=== PATIENT | female | born 1985 | race Caucasian/White ===

== ENCOUNTER 2016-10-28 13:19 | Observation (INO) ==
--- NOTE | 2016-10-28 14:44 | OB/GYN Progress Note ---
Date of Encounter: 10/28/16 Time of Encounter: 14:42 - Assessment and Plan (1) Fall Current Visit: Yes Status: Acute Pt denies complaints since fall. NST Reactive. Blood type O positive. Discharge home with precautions. Qualifiers: Encounter type: initial encounter Qualified Code(s): W19.XXXA - Unspecified fall, initial encounter (2) 33 weeks gestation of Current Visit: Yes Status: Acute (3) NST (non-stress test) reactive Current Visit: Yes Status: Acute Subjective - Subjective Interval history: Pt reports she fell on ice at 0730 this am. She hit her right hip and back but not her abdomen. She denies cramping, bleeding, pain or other complaints. Good FM. Blood type O positive. Antepartum ROS: movement normal, no loss of fluid, no vaginal bleeding, no contractions Objective - Exam FHR: category 1 FHR comments: NST reactive Auscultation: bilateral: normal Abdomen: Present: soft, gravid. Absent: tenderness Uterus: Absent: tenderness
== END 2016-10-28 14:54 | disposition home or self-care (01) ==
LOC: 1NENULAB
PROVIDERS: ADMIT Obstetrics & Gynecology; ATTEND Obstetrics & Gynecology

== ENCOUNTER 2016-12-10 08:00 | Inpatient (IN) ==
[2016-12-10] MEDS ORDERED: Metoclopramide 10 MG/2 ML VIAL IVP PRN (08:43)
[2016-12-10] MEDS ORDERED: Ondansetron 4 MG/2 ML VIAL IVP PRN (08:43)
[2016-12-10] MEDS ORDERED: Famotidine 20 MG/2 ML VIAL IVP PRN (08:43)
[2016-12-10] MEDS ORDERED: Ringers Solution, Lactated 1,000 ML IVC SCH (08:45)
--- NOTE | 2016-12-10 09:03 | OB/GYN History & Physical ---
Date of Encounter: 12/10/16 Time of Encounter: 09:02 Assessment and Plan (1) 39 weeks gestation of Current visit: Yes Status: Acute 39 weeks 3 days admit to labor and delivery for induction of labor no complaints at this time category 1, baseline 130s with accels [id number] continue FHM and external toco pain medication and epidural anesthesia upon request IV fluids and admission orders initiated 50 mcg Cytotec anticipate History of Present Illness Chief complaint: IOL HPI: Ms. Pradhan is a 31 year old female 39 weeks 3 days presents for induction of labor. Estimated due date 12/14/2016. She is a patient of OB Dr. Rebolledo. No complaints at this time such as fever, recent illness, headache, changes in vision, RUQ/epigastric pain. Denies any vaginal bleeding or leakage of fluid. Endorses good movement. No complications today with . 1st delivered normal spontaneous vaginal delivery. GBS negative, HBV nonreactive, Rubella immune. Other serologies reviewed and are negative. She is blood type O positive. Cervix last check /- on 12/02/2016. Past Med Surg Social Fam HX - Past Medical History Attestation: Yes The following information was validated with the patient. Source: patient Medical history: no medical history - Social History Smoking Status: Never smoker Smokeless Tobacco Status: No - Family History Mother Living Status: Still Living Hx Family Cardiac Disorders: Yes (HYPERTENSION) Obstetrical History - Pregnancies : 2 Para: 1 Term: 1 : 0 Ab's: 0 Livin Medications and Allergies Vit Calc,Iron,Folic [ Vitamins] 1 tab PO DAILY 12/10/16 [ History] Allergies Sulfa (Sulfonamide Antibiotics) Allergy (Verified 12/10/16 09:12) Rash Review of System OB All systems PM: reviewed and no additional remarkable complaints except as stated Exam - Constitutional Constitutional: well developed, well nourished, no acute distress, average body habitus - HEENT HEENT: EOMI, Normocephaly, Mucus Membranes Moist - Neck Neck exam: full ROM, normal inspection, supple - Lungs Respiratory exam: CTAB - Cardiovascular Cardiovascular exam: RRR, +S1, +S2 - Abdomen Abdomen: Present: bowel sounds normal, gravid, non tender - Extremities Extremities exam: full ROM, normal capillary refill, normal inspection, warm Deep Tendon Reflex Grade: 2+ Normal - Uterus Uterus exam: Present: normal size Results Result Diagrams: 12/10/16 09:20 All other labs normal. - VTE Reasons for not Prescribing Prophylaxis: Treatment not Indicated - Low risk for VTE
[2016-12-10 09:26] LABS: Basophils % 0.4 %; Eosinophils # 0.1 K/mcL (0.0-0.6); Eosinophils % 0.7 %; Hematocrit 36.5 % (35.3-44.9); Hemoglobin 12.3 g/dL (11.5-15.4); Immature Granulocytes % 0.4 % (0-4); Immature Platelets 7.9 % (1.1-6.1); Lymphocytes # 2.4 K/mcL (0.6-4.6); Lymphocytes % 29.2 %; Mean Corpuscular HGB Conc 33.7 g/dL (31.6-35.5); Mean Corpuscular Hemoglobin 29.6 pg (28.0-33.3); Mean Platelet Volume 10.9 fL (9.4-12.4); Monocytes # 0.6 K/mcL (0.0-1.3); Monocytes % 7.7 %; Platelet Count 193 K/mcL (140-400); Red Blood Count 4.15 M/mcL (3.82-4.97); Red Cell Distribution Width 12.6 % (11.5-14.5); Segmented Neutrophils % 61.6 %
[2016-12-10] MEDS ORDERED: miSOPROStol 25 MCG TABLET PO PRN (09:33)
--- NOTE | 2016-12-10 14:31 | OB Labor Progress Note ---
Date of Encounter: 12/10/16 Time of Encounter: 14:30 Labor Progress Note - Subjective Subjective: Pt reports mild discomfort with contractions. - Cervix Cervix: 3-4/70/-1 - Heart Tones Heart Tones: category I - [place]: irregular - Interventions Interventions: AROM for moderate amount clear fluid. IUPC placed. - Plan Plan: Continue to monitor. Epidural when requested. Anticipate .
[2016-12-10] MEDS ORDERED: Oxytocin 20 units/ LR 1000 mL 20 UNIT/1,000 ML BAG IVC SCH ×2 (14:45→22:54)
[2016-12-10] MEDS ORDERED: *HR* FentaNYL (PF) 100 MCG/2 ML VIAL EP ONE (15:33)
[2016-12-10] MEDS ORDERED: *HR* Ropivacaine/PF 0.2% 10 ML AMPUL EP ONE (15:33)
[2016-12-10] MEDS ORDERED: EPHEDrine 50 MG/ML VIAL IVP PRN (15:33)
[2016-12-10] MEDS ORDERED: *HR* Ropivacaine/PF 0.2% 10 ML AMPUL ONE (15:36)
[2016-12-10] MEDS ORDERED: *HR* FentaNYL (PF) 100 MCG/2 ML VIAL ONE (15:36)
--- NOTE | 2016-12-10 15:36 | Anesthesia Evaluation PreOp ---
Date of Encounter: 12/10/16 Time of Encounter: 15:30 - Past History Planned Operation: Labor Epidural Cardiac History: Denies any Significant Hx Pulmonary History: Denies Any Significant HX TOP LIFTER History: Denies Any Significant HX Other Medical History: Denies Any Significant HX Anesthesia History: No Prior Anesthetic Complications, Past Anesthesia : Yes Alcohol Use: none Drug use: none Medications and Allergies Vit Calc,Iron,Folic [ Vitamins] 1 tab PO DAILY 12/10/16 [ History] Allergies Sulfa (Sulfonamide Antibiotics) Allergy (Verified 12/10/16 09:12) Rash - Meds/Allergy Pre-op Review Medications Reviewed: Yes Allergies Reviewed: Yes Beta Blockers on Current Med List: No Anesthesia Results - Labs 12/10/16 09:20 Anesthesia Exam Height: 1.65m Weight: 88.8kg NPO (# of Hours): >4hr Pain Scale: 8 Pain Scale Used: Numeric (1 - 10) - HEENT Pupil (Motor): Pupils equal Mallampati: II Teeth: Normal Oral Opening: Greater than 3 - TOP LIFTER LOC: Oriented TOP LIFTER Motor: Normal RUE, Normal LUE, Normal RLE, Normal LLE, Normal Face TOP LIFTER Sensory: Normal: RUE, LUE, RLE, LLE, Face - Cardiac Rhythm: Regular Murmur: None JVD: No Carotid Bruit: No - Pulmonary Breath Sounds: bilateral Clear Respiratory Effort: Symmetrical Anesthesia Assess/Plan ASA Score: 2 Modified Brandi Scale for Level of Consciousness: Cooperative, oriented, and tranquil Anesthetic Plan: Regional Monitoring Plan: Standard Monitors Recovery Plan: Other
[2016-12-10] MEDS ORDERED: Epidural Premix (fent/bupiv) 110 ML EP SCH (15:45)
--- NOTE | 2016-12-10 15:59 | Anesthesia Procedures ---
Date of Encounter: 12/10/16 Time of Encounter: 15:41 Procedures: Anesthesia - Epidural/Spinal Patient ID/Chart reviewed: Yes Patient examined: Yes OB Eval: Gestational age: 39.3 OB Eval: : 2 OB Eval: Hx Para: 1 OB Eval: Contractions: Non-stressed pattern Consent Obtained: Yes Supplemental Oxygen: None/Room Air Site Prep: Aseptic Technique, Sterile prep and drape, 0.5% Chlorhexidine/Alcohol Patient position: upright Local Anesthetic: Lidocaine 1% Amount of Local Anesthetic used: 3 Touhy Needle Gauge: 18 Touhy Needle Depth (cm): 7 Catheter Depth at Skin (cm): 13 Test Dose (1.5% Lido + Epi): Volume given (mls): 5 Test Dose Result: Negative Loading Dose: Fentanyl (mcg): 100 Loading Dose: Other: Ropiv 0.2% 10mL Loading Dose Administered: Thru Catheter Infusion Med: 0.125% Bupivacaine w/ 2 mcg/ml Fentanyl Infusion Rate (mls/hr): 15 (Bolus 4mL q15min; Max 3/hr) Catheter Secured in Place: Tegaderm Interspace Used: L3-L4 Loss of Resistance (CARLY): Yes Blood: No CSF: No Paresthesia: No Procedure: Patient tolerated well. x1 attempt L3-4 Vitals + FHT's: VSS and FHR stable throughout. See nursing documentation.
--- NOTE | 2016-12-10 16:21 | OB Labor Progress Note ---
Date of Encounter: 12/10/16 Time of Encounter: 16:19 Labor Progress Note - Subjective Subjective: Pt with improving discomfort following epidural. - Cervix Cervix: 5/90/0 - Heart Tones Heart Tones: FHT deceleration audible to 60BPM. Reactive following. - [place]: 1-3 minutes - Interventions Interventions: FSE placed - Plan Plan: Continue to monitor.
--- NOTE | 2016-12-10 20:30 | OB/GYN Procedure Note ---
Delivery - Delivery Date: 12/10/16 Provider: Tina Rebolledo Intrapartum events: none Delivery induction: AROM, misoprostol Delivery augmentation: pitocin Delivery monitor: external FHT, external uterine, internal uterine Anesthesia: epidural Estimated Blood Loss: 300 - (s) A Delivery Date: 12/10/16 Infant Delivery Time: 19:30 Presentation: vertex Position: OA Route of delivery: Gender: Male Viability: Viable Pounds: 8 Ounces: 11 at 1 minute: 9 at 5 mins: 10 Shoulder Dystocia: not encountered Specimens collected: cord blood Placenta: spontaneous, complete extraction Cord: nuchal cord, 3 umbilical vessels, nuchal reduced - Repair Episiotomy: none Laceration Description: Perineal - 2nd Degree - Complications Delivery complications: none Delivery comments: Called to room with patient complete and +2 station. Under maternal effort she delivered a viable male weighing 8 lbs. 11 oz. and Apgars 9 and 10 at one and 5 minutes respectively over a second-degree perineal laceration. Following delivery of the head and infant was bulb suctioned. There was a loose nuchal cord noted that was reduced. Shoulders delivered with maternal effort and infant was placed on mom's abdomen. Once cord pulsations ceased the cord was clamped and cut. Cord blood was collected. Placenta delivered spontaneously , complete, and intact with a three-vessel cord. Second-degree perineal laceration was repaired using 3-0 Vicryl in standard fashion. Mother and recovering in the LDR in stable condition. - Disposition Mom disposition: stable in LDR disposition: stable in LDR
[2016-12-10] MEDS ORDERED: Acetaminophen 325 MG TABLET PO PRN (22:54)
[2016-12-11] MEDS: Ibuprofen 600 MG TABLET PO PRN ×2 (04:41→15:47)
[2016-12-11 08:11] VITALS: BP 118/75
[2016-12-11] MEDS ORDERED: Prenatal Vit/FA 1 EACH TABLET PO SCH (09:00)
--- NOTE | 2016-12-11 10:10 | Discharge Summary ---
Date of Encounter: 12/11/16 Time of Encounter: 10:07 - Discharge Diagnosis (1) Vaginal delivery Priority: Primary Status: Acute Comments: Pt states feels well, pain well managed, tolerating regular diet. - Discharge Medications Prescriptions: Docusate [Colace] 100 mg PO BID #60 capsule Home Medications: Vit Calc,Iron,Folic [ Vitamins] 1 tab PO DAILY 12/10/16 [ History] Acetaminophen [Tylenol] 650 mg PO Q6HR PRN #0 tablet 12/11/16 [Rx] Docusate [Colace] 100 mg PO BID #60 capsule 12/11/16 [Rx] Ibuprofen [Motrin] 600 mg PO Q6HR PRN #60 tablet 12/11/16 [Rx] Allergies/Adverse Reactions: Allergies Sulfa (Sulfonamide Antibiotics) Allergy (Verified 12/10/16 09:12) Rash Data Procedures and tests throughout hospitalization: Laboratory Tests 12/10/16 09:20 WBC 8.2 RBC 4.15 Hgb 12.3 Hct 36.5 MCV 88.0 MCH 29.6 MCHC 33.7 RDW 12.6 Plt Count 193 MPV 10.9 Immature Gran % 0.4 Seg Neutrophils % 61.6 Lymphocytes % 29.2 Monocytes % 7.7 Eosinophils % 0.7 Basophils % 0.4 Neutrophils # 5.0 Lymphocytes # 2.4 Monocytes # 0.6 Eosinophils # 0.1 Basophils # 0.0 Immature Plt Fraction 7.9 H Date of admission: 12/10/16 08:23 Primary care physician: Humphrey Maza DO Consults: 12/10/16 22:54 Consult to Soil Expert [CONS] Routine Comment: Vaginal delivery, consult needed Discharging clinician: Desi Mills Anticipated date of discharge: 12/11/16 - Patient Status Disposition: Home, Self-Care Condition: Good Functional capacity at discharge: independent ambulation Overall status at discharge: patient is back to baseline - Discharge Instructions Follow Up With: Humphrey Maza DO [Primary Care Provider] - Tina Rebolledo DO [Partnered Physician] - Additional Instructions: Perineal Care: Always wipe front to back Change your pad frequently Use your nick bottle with warm water and spray front to back Do not douche, use tampons, have sexual intercourse or put anything in your vagina for 4-6 weeks after delivery Bleeding: Vaginal bleeding can last up to 6 weeks Your menstrual period may return as early as 6 weeks after you are discharged from the hospital [place]/Stitches Care: Vaginal Delivery Vaginal stitches will dissolve within 4-6 weeks Follow perineal care instructions Care Stitches will dissolve on their own If you have art, they will need to be removed in the doctors office within 5-7 days. You may shower with stitches or art Drip plan or soapy water over the incision to clean. Pat dry gently with a clean towel. Make sure you completely dry under the skin folds DO NOT USE powders, lotions, rubbing alcohol or hydrogen peroxide on or around your incision. This will slow your wound healing It is normal to have soreness, burning, tingling, itchiness and/or numbness as your incision heals Activity: Rest frequently Do not lift anything heavier than a gallon of milk, up to 10-15 pounds No driving for 1-2 weeks for Vaginal delivery No driving for 2-4 weeks for delivery Take stairs slowly, one at a time Gradually increase your daily activity until you are back to your normal routine Do not exercise until you have had your follow-up appointment Bathing: Take a shower daily Do not take a tub bath for the first 4 weeks Diet: Drink plenty of water and fruit juices Eat a well-balanced diet with foods high in fiber such as fruits and vegetables Depression: Your hormones have a major impact on your feelings and emotions. Hormone imbalance may cause changes in your mood, creating unfamiliar thoughts and actions. Support is available to help you understand and cope with these feelings and mood changes. If you answer yes to any of the following questions, please call your health care provider: Are you having trouble sleeping? Are you feeling isolated? Have you lost your appetite? Are you having thoughts of hurting yourself or others? WARNING SIGNS: Heavy bleeding from the vagina (blood is bright red and soaks a sanitary pad in an hour or less.) Passing a blood clot larger than your fist Discharge from the vagina that has a bad odor Temperature over 100.4 F, or if you feel cold and have chills An episiotomy site that is warm, swollen or oozing. Use a mirror if needed Urination (pee) that is painful, very red and swollen or leaking fluid An incision that is painful, very red and swollen and leaking fluid An incision that has come open Breasts that are painful or full with flu like symptoms Redness, warmth or swelling in the calf of your leg Trouble breathing, dizziness, visual disturbance or faintness *Notify your health care provider immediately or go to the nearest Emergency Room if you experience any of the above signs.* To contact the nurses station 24 hours a day, For non-urgent, routine questions, please call the office at - Diet and Activity Activity: return to work once cleared by your PCP/specialist Diet: regular diet Hospital Course Reason for admission: induction of labor, IUP at term Delivery: Episiotomy: none Laceration: 2nd degree Other procedures: none complications: none Discharge diagnosis: IUP at term delivered baby: male Hospital course: Delivery - Delivery Date: 12/10/16 Provider: Tina Rebolledo Intrapartum events: none Delivery induction: AROM, misoprostol Delivery augmentation: pitocin Delivery monitor: external FHT, external uterine, internal uterine Anesthesia: epidural Estimated Blood Loss: 300 - Infant (s) Infant A Delivery Date: 12/10/16 Delivery Time: 19:30 Presentation: vertex Position: OA Route of delivery: Gender: Male Viability: Viable Pounds: 8 Ounces: 11 at 1 minute: 9 at 5 mins: 10 Shoulder Dystocia: not encountered Specimens collected: cord blood Placenta: spontaneous, complete extraction Cord: nuchal cord, 3 umbilical vessels, nuchal reduced - Repair Episiotomy: none Laceration Description: Perineal - 2nd Degree - Complications Delivery complications: none Delivery comments: Called to room with patient complete and +2 station. Under maternal effort she delivered a viable male weighing 8 lbs. 11 oz. and Apgars 9 and 10 at one and 5 minutes respectively over a second-degree perineal laceration. Following delivery of the head and infant was bulb suctioned. There was a loose nuchal cord noted that was reduced. Shoulders delivered with maternal effort and was placed on mom's abdomen. Once cord pulsations ceased the cord was clamped and cut. Cord blood was collected. Placenta delivered spontaneously , complete, and intact with a three-vessel cord. Second-degree perineal laceration was repaired using 3-0 Vicryl in standard fashion. Mother and infant recovering in the LDR in stable condition. - Disposition Mom disposition: stable in and appropriate for discharge Time Attestation: Total time spent providing and/or coordinating discharge services: Time Spent: Less than 30 minutes Exam - Constitutional Vitals: Temp Pulse Resp BP Pulse Ox 98.1 F 72 18 118/75 97 12/11/16 07:50 12/11/16 07:50 12/11/16 08:00 12/11/16 07:50 12/11/16 07:50 General appearance IM: A&O X 3 - Respiratory Respiratory exam: Present: CTAB - Cardiovascular Cardiovascular exam IM: Present: RRR, +S1, +S2 - GI/Abdominal GI/Abdominal exam IM: normal bowel sounds, soft - Uterine Tone: Firm Uterus Position: At Umbilicus, Midline - Extremities Exam Extremities exam IM: Present: normal capillary refill, normal inspection - Neurological Exam Neurological exam: normal gait, oriented X3 - Psychiatric Additional comments: reports good mood
== END 2016-12-11 21:12 | disposition home or self-care (01) | DRG 775 ==
LOC: 1NENULAB 08:23 → 1NENUOBS 22:50
PROVIDERS: ADMIT Obstetrics & Gynecology; ATTEND Obstetrics & Gynecology